=== PATIENT | female | born 1955 | race Caucasian/White ===

== ENCOUNTER → 2017-12-17 | Emergency (ER) | payer OTHER ==
[~2017-12-17] VITALS: Ht 162.6 cm; Wt 49.4 kg
[~2017-12-17] MED LIST: PERCOCET 5-3251 EACH PO; RISPERDAL1 MG
== END | disposition left against medical advice (07) ==
LOC: ER 09:05
DX: Z53.20 Procedure and treatment not carried out because of patient's decision for unspecified reasons (principal)

== ENCOUNTER → 2025-05-07 | Emergency (ER) | payer OTHER ==
[~2025-05-07] VITALS: Ht 162.6 cm; Wt 40.8 kg
[~2025-05-07] MED LIST changes: +0.9 % SODIUM CHLORIDE 1,000 ML IV SCH; +0.9 % SODIUM CHLORIDE 500 ML IV ONE; +ACETAMINOPHEN 500 MG GEL..CAP PO ONE; +ACETAMINOPHEN500 M1 PO; +ACID REDUCER20 M1; +DRIZALMA SPRINK20 MG; +FAMOTIDINE/PF 20 MG in 0.9 % SODIUM CHLORIDE 8 ML IV PUSH ONE; +GILTUSS COUGH-118 M1 PO; +GRALISE600 MG; +ORPHENADRINE CITRATE 30 MG/ML AMPUL IM ONE
[2025-05-07 16:01] VITALS: BP 99/69; O2SAT 100
== END | disposition left against medical advice (07) ==
LOC: ER 15:11
DX: R06.02 Shortness of breath (principal); J44.9 Chronic obstructive pulmonary disease, unspecified; Z87.891 Personal history of nicotine dependence; Z88.0 Allergy status to penicillin
CPT/HCPCS: 82803; 93005; 96365; 99282; J7030

== ENCOUNTER 2025-05-08 13:50 | Emergency (ER) | payer OTHER ==
[~2025-05-08] VITALS: Ht 160 cm; Wt 49.9 kg
[~2025-05-08 13:50] MED LIST changes: -0.9 % SODIUM CHLORIDE 1,000 ML IV SCH; -0.9 % SODIUM CHLORIDE 500 ML IV ONE; -ACETAMINOPHEN 500 MG GEL..CAP PO ONE; -ACETAMINOPHEN500 M1 PO; -FAMOTIDINE/PF 20 MG in 0.9 % SODIUM CHLORIDE 8 ML IV PUSH ONE; -GILTUSS COUGH-118 M1 PO; -ORPHENADRINE CITRATE 30 MG/ML AMPUL IM ONE
[2025-05-08] MEDS ORDERED: ACETAMINOPHEN 500 MG GEL..CAP PO ONE (15:15)
[2025-05-08] MEDS ORDERED: FAMOTIDINE/PF 20 MG in 0.9 % SODIUM CHLORIDE 8 ML IV PUSH ONE (15:15)
[2025-05-08] MEDS ORDERED: 0.9 % SODIUM CHLORIDE 1,000 ML IV SCH (15:15)
[2025-05-08] MEDS ORDERED: METHYLPREDNISOLONE SOD SUCC 125 MG VIAL IV ONE (15:15)
[2025-05-08 19:12] LABS: BASO % 0.3 % (0.1-1.2); EOS # 0.12 (0.04-0.54); EOS % 1.4 % (0.7-7.0); LYMPH # 3.76 (1.18-3.74); LYMPH % 42.4 % (19.3-53.1); MEAN PLATELET VOLUME 9.50 fl (9.4-12.4); MONO # 0.61 (0.24-0.82); MONO % 6.9 % (4.7-12.5); NEUT # 4.31 (1.56-6.13); NEUT % 48.7 % (34.0-71.1); RED CELL DISTRIBUTION WIDTH 13.5 % (11.6-14.4)
[2025-05-08 19:19] LABS: COVID-19 AG NEGATIVE (NEGATIVE)
[2025-05-08 19:34] LABS: ALT/SGPT 18.0 U/L (12-78); AST/SGOT 24.0 U/L (15-37); BILIRUBIN TOTAL 0.32 mg/dL (0.3-1.2); BUN CREA RATIO 19.0 (7.0-25.0); CREATININE SERUM 0.73 mg/dL (0.55-1.02); GFR 79.52; GLOBULINA 3.0 G/DL (2.4-3.5); GLUCOSE FASTING 94.0 mg/dL (65-100); OSMOLALITY SERUM 274.0 MOSM/KG (275-295)
[2025-05-08 20:08] LABS: URINE APPEARANCE Clear; URINE BILIRRUBIN Negative (NEGATIVE); URINE BLOOD Negative; URINE COLOR Yellow; URINE GLUCOSE Negative (NEGATIVE); URINE KETONE Negative (NEGATIVE); URINE LEUKOCYTE Trace; URINE NITRATE Negative; URINE PROTEIN Negative (NEGATIVE); URINE UROBILINOGEN 0.2 E.U./dl
[2025-05-08 20:12] LABS: URINE BACTERIA 993.3 uL (0.0-1933); URINE EPITHELIAL CELLS 53.2 uL (0.0-38.8); URINE RBC 31.6 uL (0.0-20.8); URINE WBC 35.3 uL (0.0-23.2)
[2025-05-08 21:13] LABS: URINE CAST 0.58 uL (0.0-1.40)
[2025-05-08] MEDS ORDERED: GILTUSS COUGH-118 M1 PO (22:43)
[2025-05-08] MEDS ORDERED: ACETAMINOPHEN500 M1 PO (22:43)
== END 2025-05-08 22:54 | disposition home or self-care (01) ==
LOC: ER 13:51
PROVIDERS: General Practice
DX: B34.8 Other viral infections of unspecified site (principal); Z20.822 Contact with and (suspected) exposure to COVID-19; F17.210 Nicotine dependence, cigarettes, uncomplicated; Z88.0 Allergy status to penicillin; J44.89 Other specified chronic obstructive pulmonary disease
CPT/HCPCS: 36415; 71046; 96365; 99283; J3490; J7030